=== PATIENT | female | born 1960 | race Two or more races ===

== ENCOUNTER 2020-06-13 16:31 | Emergency (ER) | payer OTHER ==
[~2020-06-13] VITALS: Ht 167.6 cm; Wt 81.8 kg
[2020-06-13] MEDS ORDERED: orphenadrine citrate 60mg/2ml inj. IM ONE (16:50)
[2020-06-13] MEDS ORDERED: ketorolac tromethamine 15mg/ml inj. IM ONE (16:50)
[2020-06-13] MEDS ORDERED: METH-360 PO (16:52)
[2020-06-13] MEDS ORDERED: IBUP-1985 PO (16:52)
[2020-06-13 17:19] VITALS: BP 126/68
== END 2020-06-13 17:22 | disposition home or self-care (01) ==
LOC: EEVIPCON 16:33 → ER 16:33
DX: M54.41 Lumbago with sciatica, right side (principal); G89.29 Other chronic pain; F17.200 Nicotine dependence, unspecified, uncomplicated; Z79.899 Other long term (current) drug therapy
CPT/HCPCS: 96372; 99284; J1885; J2360

== ENCOUNTER 2022-08-20 11:03 | Inpatient (IN) | payer BC, OTHER ==
[~2022-08-20] VITALS: Ht 165.1 cm; Wt 77.0 kg
[~2022-08-20 11:03] MED LIST: IBUP-1985 PO; METH-360 PO
[2022-08-20 11:25] LABS: BASOPHILS % (AUTO) 0.4 % (0-1); EOSINOPHILS # (AUTO) 0.1 X10'3 (0-0.9); EOSINOPHILS % (AUTO) 0.9 % (0-6); HEMATOCRIT 40.1 % (35.0-45.0); LYMPHOCYTES # (AUTO) 4.3 X10'3 (1.1-4.8); MEAN CORPUSCULAR HEMOGLOBIN 29.6 PG (27.0-31.0); MONOCYTES # (AUTO) 0.4 X10'3 (0-0.9); MONOCYTES % (AUTO) 5.8 % (2-12); RED BLOOD COUNT 4.51 X10'6 (4.20-5.60)
[2022-08-20 11:26] LABS: HEMOGLOBIN 13.3 g/dl (12.0-16.0); LYMPHOCYTES % (AUTO) 63.2 % (21-51); MEAN CORPUSCULAR HGB CONC 33.2 g/dL (33.0-36.5); NEUTROPHILS % (AUTO) 29.7 % (42-75); PLATELET COUNT 283 X10'3 (140-440); RED CELL DISTRIBUTION WIDTH 12.5 % (11.5-14.5); WHITE BLOOD COUNT 6.8 X10'3 (4.5-11.0)
[2022-08-20 11:36] LABS: ALANINE AMINOTRANSFERASE 22 U/L (12-78); ALBUMIN 3.7 G/DL (3.4-5.0); ALBUMIN/GLOBULIN RATIO 0.9 (1.1-1.5); ALKALINE PHOSPHATASE 139 IU/L (46-116); ANION GAP 6 (8-16); ASPARTATE AMINO TRANSFERASE 23 U/L (10-37); BILIRUBIN,TOTAL 0.3 MG/DL (0.1-1.0); BLOOD UREA NITROGEN 13 MG/DL (7-18); BUN/CREATININE RATIO 17.1 (6.6-38.0); CALCIUM 9.5 MG/DL (8.5-10.1); CHLORIDE 105 MMOL/L (99-107); CREATININE 0.76 MG/DL (0.40-0.90); GLUCOSE 119 MG/DL (70-104); MAGNESIUM 2.1 MG/DL (1.5-2.4); POTASSIUM 4.1 MMOL/L (3.5-5.1); SODIUM 138 MMOL/L (135-145); TOTAL CARBON DIOXIDE 26.7 MMOL/L (24-32); TOTAL PROTEIN 7.7 G/DL (6.4-8.2); eGFR 77 ML/MIN
[2022-08-20] MEDS ORDERED: iohexol 350MG/ML 100ml bottle IV ONE (11:45)
[2022-08-20 11:54] LABS: TOTAL CELLS COUNTED 100
[2022-08-20 11:56] LABS: PLATELET ESTIMATE NORMAL; POIKILOCYTOSIS FEW
[2022-08-20 11:58] LABS: APTT 30 SECONDS (22-32)
[2022-08-20] MEDS ORDERED: clopidogrel 75mg tablet PO SCH (12:40)
[2022-08-20] MEDS ORDERED: aspirin 81mg, enteric-coated 1 TAB TABLET.DR PO ONE (12:40)
[2022-08-20 13:10] LABS: CHOL/HDL RATIO 4.3 (0.00-4.99); CHOLESTEROL 213 MG/DL (0-200); HDL CHOLESTEROL 50 MG/DL (35-60); LDL CHOLESTEROL 129 MG/DL (50-100); TRIGLYCERIDES 158 MG/DL (20-135)
--- NOTE | 2022-08-20 13:18 | NUR ---
Dr Evans neurologist reviewed CTA head and neck results and no change in recommendation at this time.
[2022-08-20] MEDS ORDERED: potassium Cl 20 mEq SR tablet PO PRN ×2 (14:20)
[2022-08-20] MEDS ORDERED: potassium Cl 40MEQ/1/2NS 520ml 520 ML IV PRN (14:20)
[2022-08-20] MEDS ORDERED: magnesium Cl slow-release 64mg tablet PO PRN ×2 (14:20)
[2022-08-20] MEDS ORDERED: ondansetron/PF 4mg/2ml inj IV PRN (14:20)
[2022-08-20] MEDS ORDERED: PERFLUTREN PROTEIN-A MICROSPHR (Optison) 0.22 MG/ML 3ML VIAL IV ONE (14:20)
[2022-08-20] MEDS ORDERED: magnesium 2GM in 50ml NS 50 ML IV PRN (14:20)
[2022-08-20] MEDS ORDERED: magnesium 4gm in 100ml NS 100 ML IV PRN (14:20)
[2022-08-20] MEDS: normal saline 1000ml 1,000 ML IV SCH (15:09)
[2022-08-20] MEDS: K and/or MAG REPLACEMENT MC SCH (18:49)
--- NOTE | 2022-08-20 19:56 | NUR ---
Patient placed on hospital bed.
[2022-08-20] MEDS ORDERED: acetaminophen 325mg tablet PO PRN (20:30)
[2022-08-21] MEDS ORDERED: LEVO100T9 PO (01:00)
[2022-08-21 04:29] LABS: BASOPHILS % (AUTO) 0.4 % (0-1); EOSINOPHILS # (AUTO) 0.1 X10'3 (0-0.9); EOSINOPHILS % (AUTO) 1.3 % (0-6); HEMATOCRIT 38.1 % (35.0-45.0); HEMOGLOBIN 12.6 g/dl (12.0-16.0); LYMPHOCYTES # (AUTO) 2.7 X10'3 (1.1-4.8); LYMPHOCYTES % (AUTO) 56.3 % (21-51); MEAN CORPUSCULAR HEMOGLOBIN 29.6 PG (27.0-31.0); MEAN CORPUSCULAR HGB CONC 33.1 g/dL (33.0-36.5); MEAN CORPUSCULAR VOLUME 89.3 FL (78-98); MONOCYTES # (AUTO) 0.3 X10'3 (0-0.9); MONOCYTES % (AUTO) 5.8 % (2-12); NEUTROPHILS # (AUTO) 1.7 X10'3 (1.8-7.7); NEUTROPHILS % (AUTO) 36.2 % (42-75); PLATELET COUNT 237 X10'3 (140-440); RED BLOOD COUNT 4.27 X10'6 (4.20-5.60); RED CELL DISTRIBUTION WIDTH 12.8 % (11.5-14.5); WHITE BLOOD COUNT 4.7 X10'3 (4.5-11.0)
[2022-08-21 04:36] LABS: ALBUMIN 3.4 G/DL (3.4-5.0); ANION GAP 10 (8-16); BLOOD UREA NITROGEN 11 MG/DL (7-18); BUN/CREATININE RATIO 14.7 (6.6-38.0); CALCIUM 9.2 MG/DL (8.5-10.1); CHLORIDE 104 MMOL/L (99-107); CREATININE 0.75 MG/DL (0.40-0.90); GLUCOSE 127 MG/DL (70-104); MAGNESIUM 2.1 MG/DL (1.5-2.4); POTASSIUM 4.3 MMOL/L (3.5-5.1); SODIUM 138 MMOL/L (135-145); TOTAL CARBON DIOXIDE 24.5 MMOL/L (24-32); eGFR 79 ML/MIN
[2022-08-21] MEDS: K and/or MAG REPLACEMENT MC SCH (06:35)
[2022-08-21] MEDS ORDERED: clopidogrel 75mg tablet PO SCH (08:00)
[2022-08-21] MEDS ORDERED: aspirin 325mg tablet, delayed-release (Ecotrin) PO SCH (08:00)
--- NOTE | 2022-08-21 08:59 | NUR ---
PT WORKING WITH PATIENT. PATIENT ON FLOOR AND MOVED TO A [place] BED ON ADMISSION TO FLOOR 0730
[2022-08-21 09:00] VITALS: BP 153/85
[2022-08-21 10:00] VITALS: BP 139/83
[2022-08-21] MEDS: normal saline 1000ml 1,000 ML IV SCH (11:08)
[2022-08-21 11:16] VITALS: BP_SYST 126; BP_SYST 144; BP_SYST 153; BP_DIAS 55; BP_DIAS 70; BP_DIAS 97
[2022-08-21 11:24] LABS: HEMOGLOBIN A1C 6.2 % (4.5-6.2)
[2022-08-21] MEDS ORDERED: ASPI-1071 PO (11:24)
[2022-08-21] MEDS ORDERED: CLOP75TA34 PO (11:24)
[2022-08-21] MEDS ORDERED: ATOR20TA PO (11:24)
--- NOTE | 2022-08-21 14:13 | NUR ---
Spoke with [facility] nurse regarding darting patient.
--- NOTE | 2022-08-21 15:04 | NUR ---
PAGER ID: [phone] MESSAGE: [phone] Ye Light Can I give the patient a dose of ASA and plavix, per family request. sanaz [id number] Family changed mind, medication will be ready at the pharmacy at 1600
== END 2022-08-21 15:37 | disposition home or self-care (01) | DRG 66 ==
LOC: ER 11:03 → ED HOLD 14:24 → EDBEDREQ 08-21 04:27 → SUR 3N 08-21 07:54
PROVIDERS: ADMIT Internal Medicine; ATTEND Internal Medicine
PROC: B3251ZZ Computerized Tomography (CT Scan) of Bilateral Common Carotid Arteries using Low Osmolar Contrast (ICD-10-PCS; principal; 2022-08-20)
PROC: B32G1ZZ Computerized Tomography (CT Scan) of Bilateral Vertebral Arteries using Low Osmolar Contrast (ICD-10-PCS; 2022-08-20)
PROC: B32R1ZZ Computerized Tomography (CT Scan) of Intracranial Arteries using Low Osmolar Contrast (ICD-10-PCS; 2022-08-20)
PROC: B3281ZZ Computerized Tomography (CT Scan) of Bilateral Internal Carotid Arteries using Low Osmolar Contrast (ICD-10-PCS; 2022-08-20)
DX: I63.89 Other cerebral infarction (principal); H53.2 Diplopia; R29.701 NIHSS score 1; E03.9 Hypothyroidism, unspecified; Z20.822 Contact with and (suspected) exposure to COVID-19; I10 Essential (primary) hypertension; G89.29 Other chronic pain; M54.50 Low back pain, unspecified; R26.2 Difficulty in walking, not elsewhere classified; Z79.899 Other long term (current) drug therapy
CPT/HCPCS: 36415; 70450; 70496; 70498; 70551; 71045; 80048; 80053; 80061; 82948; 83036; 83735; 83880; 84443; 84484; 85007; 85025; 85610; 85730; 87811; 92508; 92616; 93005; 93306; 97116; 97161; 97530; 99285; G0378; J3490; J7030; Q9967

== ENCOUNTER 2022-10-11 12:49 | Emergency (ER) | payer OTHER ==
[~2022-10-11] VITALS: Ht 165.1 cm; Wt 75.9 kg
[~2022-10-11 12:49] MED LIST changes: +ASPI-1071 PO; +ATOR20TA PO; +CLOP75TA34 PO; -IBUP-1985 PO; +LEVO100T9 PO; -METH-360 PO
[2022-10-11] MEDS ORDERED: normal saline 1000ML IV soln IVB ONE (13:00)
[2022-10-11 13:23] LABS: BASOPHILS % (AUTO) 0.3 % (0-1); EOSINOPHILS % (AUTO) 0.7 % (0-6); HEMATOCRIT 38.7 % (35.0-45.0); HEMOGLOBIN 12.8 g/dl (12.0-16.0); LYMPHOCYTES # (AUTO) 2.5 X10'3 (1.1-4.8); MEAN CORPUSCULAR HEMOGLOBIN 29.3 PG (27.0-31.0); MEAN CORPUSCULAR VOLUME 88.6 FL (78-98); MEAN PLATELET VOLUME 8.6 FL (7.4-10.4); MONOCYTES # (AUTO) 0.3 X10'3 (0-0.9); MONOCYTES % (AUTO) 5.4 % (2-12); NEUTROPHILS # (AUTO) 3.2 X10'3 (1.8-7.7); NEUTROPHILS % (AUTO) 52.6 % (42-75); PLATELET COUNT 230 X10'3 (140-440); RED BLOOD COUNT 4.37 X10'6 (4.20-5.60); RED CELL DISTRIBUTION WIDTH 13.4 % (11.5-14.5); WHITE BLOOD COUNT 6.1 X10'3 (4.5-11.0)
[2022-10-11 13:34] LABS: ALANINE AMINOTRANSFERASE 30 U/L (12-78); ALBUMIN 4.2 G/DL (3.4-5.0); ALBUMIN/GLOBULIN RATIO 1.1 (1.1-1.5); ALKALINE PHOSPHATASE 148 IU/L (46-116); ANION GAP 9 (8-16); ASPARTATE AMINO TRANSFERASE 24 U/L (10-37); BILIRUBIN,TOTAL 0.5 MG/DL (0.1-1.0); BLOOD UREA NITROGEN 10 MG/DL (7-18); BUN/CREATININE RATIO 13.7 (6.6-38.0); CALCIUM 9.7 MG/DL (8.5-10.1); CHLORIDE 104 MMOL/L (99-107); CREATININE 0.73 MG/DL (0.40-0.90); GLUCOSE 138 MG/DL (70-104); POTASSIUM 3.9 MMOL/L (3.5-5.1); SODIUM 139 MMOL/L (135-145); TOTAL CARBON DIOXIDE 26.5 MMOL/L (24-32); eGFR 81 ML/MIN
[2022-10-11] MEDS ORDERED: iohexol 300mg/ml 100ml inj. ONE (13:39)
[2022-10-11 14:59] LABS: LIPASE 221 U/L (73-393)
[2022-10-11 15:21] VITALS: BP 140/82
== END 2022-10-11 15:24 | disposition home or self-care (01) ==
LOC: ER 12:49
DX: K86.9 Disease of pancreas, unspecified (principal); R10.11 Right upper quadrant pain; I10 Essential (primary) hypertension; G89.29 Other chronic pain; Z79.82 Long term (current) use of aspirin; Z79.899 Other long term (current) drug therapy
CPT/HCPCS: 36415; 74177; 80053; 83690; 85025; 86301; 99285; J3490; J7030; Q9967

== ENCOUNTER 2023-10-19 12:20 | Emergency (ER) | payer BC ==
[~2023-10-19] VITALS: Ht 165.1 cm; Wt 58.6 kg
[~2023-10-19 12:20] MED LIST changes: -ASPI-1071 PO; -ATOR20TA PO; -CLOP75TA34 PO
[2023-10-19 12:21] VITALS: TEMP 98.3
[2023-10-19] MEDS: ketorolac trometh. 30mg/ml inj. IV ONE (12:41)
[2023-10-19] MEDS: normal saline 1000ML IV soln IVB ONE ×2 (12:41→13:25)
[2023-10-19] MEDS: ondansetron/PF 4mg/2ml inj IV ONE (12:41)
[2023-10-19] MEDS: ondansetron 4mg rapidly disintigrating tab PO ONE (12:46)
[2023-10-19 12:51] LABS: BASOPHILS % (AUTO) 0.3 % (0-1); EOSINOPHILS # (AUTO) 0.1 X10'3 (0-0.9); HEMATOCRIT 35.7 % (35.0-45.0); HEMOGLOBIN 11.8 g/dl (12.0-16.0); LYMPHOCYTES # (AUTO) 2.4 X10'3 (1.1-4.8); LYMPHOCYTES % (AUTO) 44.4 % (21-51); MEAN CORPUSCULAR HEMOGLOBIN 31.6 PG (27.0-31.0); MEAN CORPUSCULAR VOLUME 95.7 FL (78-98); MEAN PLATELET VOLUME 9.1 FL (7.4-10.4); MONOCYTES # (AUTO) 0.3 X10'3 (0-0.9); MONOCYTES % (AUTO) 5.6 % (2-12); NEUTROPHILS # (AUTO) 2.6 X10'3 (1.8-7.7); NEUTROPHILS % (AUTO) 48.7 % (42-75); PLATELET COUNT 157 X10'3 (140-440); RED BLOOD COUNT 3.73 X10'6 (4.20-5.60); RED CELL DISTRIBUTION WIDTH 13.6 % (11.5-14.5); WHITE BLOOD COUNT 5.3 X10'3 (4.5-11.0)
[2023-10-19 13:04] LABS: ALANINE AMINOTRANSFERASE 22 U/L (12-78); ALBUMIN/GLOBULIN RATIO 0.7 (1.1-1.5); ALKALINE PHOSPHATASE 255 IU/L (46-116); ANION GAP 9 (8-16); ASPARTATE AMINO TRANSFERASE 32 U/L (10-37); BILIRUBIN,TOTAL 0.3 MG/DL (0.1-1.0); BLOOD UREA NITROGEN 8 MG/DL (7-18); BUN/CREATININE RATIO 12.9 (10.0-20.0); CALCIUM 8.7 MG/DL (8.5-10.1); CHLORIDE 105 MMOL/L (99-107); CREATININE 0.62 MG/DL (0.40-0.90); GLUCOSE 142 MG/DL (70-104); LIPASE < 6 U/L (16-77); POTASSIUM 3.9 MMOL/L (3.5-5.1); SODIUM 140 MMOL/L (135-145); TOTAL CARBON DIOXIDE 25.7 MMOL/L (24-32); TOTAL PROTEIN 7.2 G/DL (6.4-8.2); eCRCL 84 ML/MIN; eGFR > 90 ML/MIN
[2023-10-19] MEDS ORDERED: iohexol 300mg/ml 100ml inj. ONE (14:02)
[2023-10-19] MEDS: morphine 2 MG/ML inj. syringe IV ONE (14:32)
[2023-10-19 15:08] LABS: BILIRUBIN,URINE NEGATIVE (Neg); CLARITY,URINE CLEAR (Clear); COLOR,URINE STRAW (Yellow); GLUCOSE, URINE NEGATIVE (Neg); KETONES,URINE NEGATIVE (Neg); LEUKOCYTE ESTERASE ,URINE NEGATIVE (Neg); NITRITES, URINE NEGATIVE (Neg); OCCULT BLOOD,URINE NEGATIVE (Neg); PROTEIN,URINE NEGATIVE (Neg); UROBILINOGEN,URINE 0.2 E.U/dL (0.2-1.0)
[2023-10-19 15:09] LABS: UA COLLECTION TYPE CLN CATCH MIDSTREAM; URINE HCG NEGATIVE (NEG)
[2023-10-19 15:45] VITALS: BP 130/83; PULSE 61; RESP 16; O2SAT 99
== END 2023-10-19 15:51 | disposition home or self-care (01) ==
LOC: ER 12:21
DX: R10.12 Left upper quadrant pain (principal); R06.02 Shortness of breath
CPT/HCPCS: 36415; 74178; 80053; 81003; 81025; 83605; 83690; 84145; 85025; 96361; 96374; 96375; 99285; J1885; J2270; J2405; J3490; J7030; Q9967